=== PATIENT | female | born 2000 | race African-American/Black ===

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

== ENCOUNTER 2018-01-07 23:42 | Emergency (ER) | payer MEDICAID ==
[~2018-01-07] VITALS: Ht 160 cm; Wt 56.8 kg
[2018-01-07 23:49] VITALS: Ht 160 cm; Wt 56.8 kg
[2018-01-08] MEDS ORDERED: TORADOL10 MG PO (00:41)
[2018-01-08 01:35] VITALS: BP 130/75
== END 2018-01-08 01:32 | disposition home or self-care (01) ==
LOC: D.ER 23:42
DX: S53.401A Unspecified sprain of right elbow, initial encounter (principal); X58.XXXA Exposure to other specified factors, initial encounter; Y93.89 Activity, other specified; Y92.019 Unspecified place in single-family (private) house as the place of occurrence of the external cause

== ENCOUNTER 2018-02-25 20:33 | Emergency (ER) | payer MEDICAID ==
[~2018-02-25] VITALS: Ht 149.9 cm; Wt 81.8 kg
[~2018-02-25 20:33] MED LIST: TORADOL10 MG PO
[2018-02-25 20:38] VITALS: Ht 149.9 cm; Wt 81.8 kg
[2018-02-25] MEDS ORDERED: FERROUS SULFAT325 MG PO (20:39)
[2018-02-25] MEDS ORDERED: VENTOLIN HFA18 GM INH ×2 (20:40→21:57)
[2018-02-25] MEDS ORDERED: CLARITIN 10 MG10 MG PO (20:40)
[2018-02-25 21:02] LABS: BASOPHILS 0.2 % (0-2); EOSINOPHILS 0.9 % (0-7); HEMATOCRIT 25.9 % (36.0-48.0); HEMOGLOBIN 7.8 g/dL (12-16); MCH 20.9 pg (26.0-34.0); MCHC 30.1 g/dL (31.0-37.0); MCV 69.4 fL (80.0-100.0); MEAN PLATELET VOLUME 10.1 fL (7.4-10.4); MONOCYTES 6.9 % (2-11); PLATELET COUNT 244 10x3/uL (130-400); RBC 3.73 10x6/uL (4.00-5.40); RDW 16.7 % (11.5-14.5); WBC 4.5 10x3/uL (4.8-10.8)
[2018-02-25 21:13] LABS: ALKALINE PHOSPHATASE 76 U/L (46-116); ALT (SGPT) 26 U/L (10-68); BILIRUBIN - TOTAL 0.21 mg/dL (0.2-1.3); CALC OSMOLALITY 275 mosm/kg (275-300); CALCIUM 9.2 mg/dL (8.5-10.1); CARBON DIOXIDE 23.2 mmol/L (21.0-32.0); CHLORIDE - SERUM 103 mmol/L (98-107); CREATININE - SERUM 0.8 mg/dL (0.6-1.3); GLUCOSE 100 mg/dL (74-106); POTASSIUM - SERUM 3.9 mmol/L (3.5-5.1); PROTEIN - SERUM 8.3 g/dL (6.4-8.2); SODIUM 138 mmol/L (136-145); UREA NITROGEN 12 mg/dL (7-18); eGFR NON AFRICAN AMERICAN > 90 mL/min (90-120)
[2018-02-25 23:01] VITALS: BP 128/81
== END 2018-02-25 23:02 | disposition home or self-care (01) ==
LOC: D.ER 20:33
PROVIDERS: Family Medicine
DX: J45.901 Unspecified asthma with (acute) exacerbation (principal); D64.9 Anemia, unspecified; N92.0 Excessive and frequent menstruation with regular cycle

== ENCOUNTER 2019-07-01 15:18 | Emergency (ER) | payer MEDICAID ==
[~2019-07-01] VITALS: Ht 149.9 cm; Wt 80.0 kg
[~2019-07-01 15:18] MED LIST changes: +CLARITIN 10 MG10 MG PO; +FERROUS SULFAT325 MG PO; +VENTOLIN HFA18 GM INH
[2019-07-01 15:21] VITALS: Ht 149.9 cm; Wt 80.0 kg
[2019-07-01] MEDS ORDERED: PROAIR HFA8.5 G1 INH (16:54)
[2019-07-01] MEDS ORDERED: CLARITIN 10 MG10 MG PO (16:54)
[2019-07-01 17:11] VITALS: BP 126/78
== END 2019-07-01 17:11 | disposition home or self-care (01) ==
LOC: D.ER 15:18
DX: J45.901 Unspecified asthma with (acute) exacerbation (principal); J30.2 Other seasonal allergic rhinitis

== ENCOUNTER 2019-10-17 02:20 | Inpatient (IN) | payer MEDICAID ==
[~2019-10-17] VITALS: Ht 149.9 cm; Wt 81.6 kg
[2019-10-17] VITALS (7 sets, daily range): BP systolic 106–142; BP diastolic 55–86; BMI 36.4; BMI 36.3
[~2019-10-17 02:20] MED LIST changes: +PROAIR HFA8.5 G1 INH
[2019-10-17 02:46] LABS: BASOPHILS 0.1 % (0-2); EOSINOPHILS 0.1 % (0-7); HEMATOCRIT 20.9 % (36.0-48.0); IMMATURE GRANULOCYTES 0.7 % (0-5); LYMPHOCYTES 7.1 % (15-50); MCHC 27.8 g/dL (31.0-37.0); MCV 63.3 fL (80.0-100.0); MONOCYTES 7.8 % (2-11); NEUTROPHILS 84.2 % (40-80); RDW 20.1 % (11.5-14.5)
[2019-10-17 02:47] LABS: UDS - AMPHET NEGATIVE QUAL (NEGATIVE); UDS - BARB NEGATIVE QUAL (NEGATIVE); UDS - BENZO NEGATIVE QUAL (NEGATIVE); UDS - COCAINE NEGATIVE QUAL (NEGATIVE); UDS - OPIATE POSITIVE QUAL (NEGATIVE); UDS - PCP NEGATIVE QUAL (NEGATIVE); UDS - THC NEGATIVE QUAL (NEGATIVE)
[2019-10-17 02:49] LABS: BILIRUBIN NEGATIVE (NEGATIVE); GLUCOSE NEGATIVE (NEGATIVE); HCG URINE NEGATIVE (NEGATIVE); KETONE NEGATIVE (NEGATIVE); NITRITE NEGATIVE (NEGATIVE); UROBILINOGEN NORMAL (NORMAL)
[2019-10-17 02:51] LABS: RED CELLS - URINE 0-5 /hpf (0-5)
[2019-10-17 02:52] LABS: ANION GAP 15.4 mmol/L (8-16); BACTERIA MODERATE /hpf (NEGATIVE); CALCIUM 8.5 mg/dL (8.5-10.1); CREATININE - SERUM 1.6 mg/dL (0.6-1.3); EPITHELIAL CELLS 0-5 /hpf (0-5); POTASSIUM - SERUM 3.4 mmol/L (3.5-5.1)
[2019-10-17 02:57] LABS: ALBUMIN 3.4 g/dL (3.4-5.0); BILIRUBIN - TOTAL 0.73 mg/dL (0.2-1.3); PROTEIN - SERUM 7.7 g/dL (6.4-8.2)
[2019-10-17 03:00] LABS: HEMOGLOBIN 5.8 g/dL (12-16); MCH 17.6 pg (26.0-34.0); PLATELET COUNT 177 10x3/uL (130-400)
--- NOTE | 2019-10-17 03:53 | NUR ---
ROCEPHIN INFUSION COMPLETE
--- NOTE | 2019-10-17 05:02 | NUR ---
[facility] FOR [facility]LEMET[facility].
--- NOTE | 2019-10-17 07:28 | NUR ---
UNTIT ONE OF TWO UNITS OF PRBC STARTED T 0610 V/S 98.7, PULSE 95 , RESP 22 B/P100/55 TOLARATING WELL WITH NO S/S OF ADVERS REACTION AT THIS TIME.
--- NOTE | 2019-10-17 07:30 | NUR ---
SHIFT REPORT RECEIVED, PT SLEEPING, AROUSED EASILY TO VOICE, DENIES NEEDS, BED LOWEST POSITION, CALL LIGHT IN REACH, 1ST UNIT PRBCS STILL INFUSING, WILL CONTINUE TO MONITOR
--- NOTE | 2019-10-17 10:43 | NUR ---
CHECKED PT VITALS PRIOR TO SECOND UNIT, TEMP IS ELEVATED TO 100.3, SATS AT 94%, PULSE AT 115, PAGED JOVANI LEY ORDERED TYLENOL AND BENADRYL TO BE GIVEN PRIOR TO SECOND UNIT
[2019-10-17 17:51] LABS: HEMATOCRIT 30.1 % (36.0-48.0); HEMOGLOBIN 9.4 g/dL (12-16)
--- NOTE | 2019-10-17 19:00 | NUR ---
BEDSIDE REPORT RECEIVED AND CARE OF PT ASSUMED. PT SITTING UP IN BED WATCHING TV. IV TO LEFT FA PATENT WITH NS INFUSING AT 150 ML/HR. WILL MONITOR FOR NEEDS.
--- NOTE | 2019-10-17 19:36 | NUR ---
I have reviewed this patient and I concur with the Shift Assessment completed by the Licensed Practical Nurse today this shift.
--- NOTE | 2019-10-17 21:05 | NUR ---
HS MEDICATIONS GIVEN. WILL CONTINUE TO MONITOR FOR NEEDS.
--- NOTE | 2019-10-17 23:06 | NUR ---
GAVE MORPHINE IVP PER REQUEST FOR BACK AND ABDOMINAL PAIN. WILL MONITOR FOR EFFECTIVENESS.
--- NOTE | 2019-10-18 02:49 | NUR ---
GAVE PT ICE WATER, APPLE JUICE, AND X3 ICE PACKS PER REQUEST.
[2019-10-18 04:00] VITALS: BP 121/80
[2019-10-18 07:48] LABS: HEMATOCRIT 26.9 % (36.0-48.0); HEMOGLOBIN 8.1 g/dL (12-16); MCH 20.8 pg (26.0-34.0); MCHC 30.1 g/dL (31.0-37.0); MCV 69.2 fL (80.0-100.0); PLATELET COUNT 193 10x3/uL (130-400); RBC 3.89 10x6/uL (4.00-5.40); WBC 20.2 10x3/uL (4.8-10.8)
[2019-10-18 07:56] LABS: % SATURATION 40 % (15-55); IRON 116 ug/dl (35-150); TOTAL IRON BIND CAPACITY 289 ug/dl (260-445); UNSAT IRON BIND CAPACITY 173 ug/dl (150-375)
[2019-10-18 08:20] LABS: ALBUMIN 2.6 g/dL (3.4-5.0); ANION GAP 10.9 mmol/L (8-16); BILIRUBIN - TOTAL 0.83 mg/dL (0.2-1.3); CALCIUM 8.3 mg/dL (8.5-10.1); CARBON DIOXIDE 24.6 mmol/L (21.0-32.0); CREATININE - SERUM 1.1 mg/dL (0.6-1.3); POTASSIUM - SERUM 3.5 mmol/L (3.5-5.1); PROTEIN - SERUM 6.6 g/dL (6.4-8.2)
[2019-10-18 09:01] VITALS: BP 121/73
[2019-10-18 10:57] LABS: % SATURATION 2 % (15-55); IRON 8 ug/dl (35-150); TOTAL IRON BIND CAPACITY 368 ug/dl (260-445); UNSAT IRON BIND CAPACITY 360 ug/dl (150-375)
[2019-10-18 11:10] LABS: FERRITIN 60 ng/mL (3-244); LDH 280 U/L (81-234)
[2019-10-18 11:59] VITALS: BP 122/73
[2019-10-18 12:11] LABS: ANISOCYTOSIS OCC; LYMPHOCYTES 9 % (15-50); MONOCYTES 12 % (2-11); NEUTROPHILS 79 % (40-80); PLATELET ESTIMATE NORMAL; POIKILOCYTOSIS OCC; POLYCHROMASIA OCC
[2019-10-18 12:12] LABS: CRENATED CELLS OCC
[2019-10-18 16:41] VITALS: BP 124/89
--- NOTE | 2019-10-18 18:10 | NUR ---
STOOL COLLECTED AND TAKEN TO LAB.
[2019-10-18 18:24] VITALS: Ht 149.9 cm; Wt 81.6 kg
[2019-10-18 20:00] VITALS: BP 134/92
[2019-10-19] VITALS: BP 141/92
--- NOTE | 2019-10-19 03:35 | NUR ---
PT RESTING IN BED. EYES CLOSED. NO SIGNS OF DISTRESS. BREATHING EVEN AND UNLABORED. IV SITE LT FA DRESSING CLEAN DRY AND INTACT IV FLUIDS GOING. RT AC IV DRESSING CLEAN DRY AND INTACT. NO SIGNS OF INFECTION OR INFULTRATION. SKIN CLEAN DRY AND INTACT. WILL CONTINUE PLAN OF CARE. CALL LIGHT IN REACH. BED LOWERED AND LOCKED.
[2019-10-19 04:00] VITALS: BP 156/98
[2019-10-19 04:49] LABS: BASOPHILS 0.2 % (0-2); EOSINOPHILS 0.2 % (0-7); HEMATOCRIT 25.3 % (36.0-48.0); IMMATURE GRANULOCYTES 2.2 % (0-5); LYMPHOCYTES 8.5 % (15-50); MCH 20.5 pg (26.0-34.0); MCHC 29.6 g/dL (31.0-37.0); MCV 69.1 fL (80.0-100.0); MONOCYTES 11.8 % (2-11); NEUTROPHILS 77.1 % (40-80); PLATELET COUNT 221 10x3/uL (130-400); RBC 3.66 10x6/uL (4.00-5.40); RDW 24.7 % (11.5-14.5); WBC 16.1 10x3/uL (4.8-10.8)
--- NOTE | 2019-10-19 05:11 | NUR ---
I have reviewed this patient and I concur with the Shift Assessment completed by the Licensed Practical Nurse today this shift.
[2019-10-19 05:24] LABS: ALBUMIN 2.8 g/dL (3.4-5.0); ANION GAP 13.6 mmol/L (8-16); BILIRUBIN - TOTAL 0.45 mg/dL (0.2-1.3); CALCIUM 8.3 mg/dL (8.5-10.1); CARBON DIOXIDE 21.3 mmol/L (21.0-32.0); POTASSIUM - SERUM 3.9 mmol/L (3.5-5.1); PROTEIN - SERUM 6.4 g/dL (6.4-8.2)
[2019-10-19 05:44] LABS: HEMOGLOBIN 7.5 g/dL (12-16)
--- NOTE | 2019-10-19 07:00 | NUR ---
A&O RESTING IN BED WITH EYES OPEN. NO C/O PAIN. NO S/S OF ACUTE DISTRESS NOTED. IV TO LEFT FOREARM, NS INFUSING @ 150 ML/HR. SITE PATENT WITHOUT REDNESS OR SWELLING AND IV TO RIGHT AC, SL. SITES PATENT WITHOUT REDNESS OR SWELLING. H&H 7.5/25.3 THIS AM. DENIES ANY NEEDS AT THIS TIME. CALL LIGHT IN REACH. WILL CONTINUE TO MONITOR.
[2019-10-19 07:14] LABS: HAPTOGLOBIN 267 mg/dL (33-278)
[2019-10-19 08:38] VITALS: BP 148/99
[2019-10-19 12:41] VITALS: BP 143/99
[2019-10-19 17:00] VITALS: BP 140/96
--- NOTE | 2019-10-19 18:26 | NUR ---
RESTING IN BED WITH EYES OPEN. NO C/O PAIN. NO S/S OF ACUTE DISTRESS NOTED. IV TO LEFT FOREARM INFILTRATED, DISCONTINUED CATHETER TIP INTACT. IV TO RIGHT AC STILL PATENT, SWITCHED FLUIDS TO PATENT IV. DENIES ANY NEEDS AT THIS TIME. CALL LIGHT IN REACH.
--- NOTE | 2019-10-19 19:49 | NUR ---
I have reviewed this patient and I concur with the Shift Assessment completed by the Licensed Practical Nurse today this shift.
[2019-10-19 20:00] VITALS: BP 134/91
--- NOTE | 2019-10-19 23:30 | NUR ---
NEW IV SITED RT FA 20G. ATTEMPTS X3. PT TOLERATED WELL. SWAB CAPS IN PLACE. CONTINUED IV FLUIDS. WILL CONTINUE PLAN OF CARE.
[2019-10-20] VITALS (8 sets, daily range): BP systolic 128–164; BP diastolic 91–99
--- NOTE | 2019-10-20 00:57 | NUR ---
PT RESTING IN BED. EYES CLOSED. NO SIGNS OF DISTRESS. BREATHING EVEN AND UNLABORED. IV SITE RT FA 20G. DRESSING CLEAN DRY AND INTACT. NO SIGNS OF INFECTION OR INFULTRATION. FLUIDS GOING. SKIN CLEAN DRY AND INTACT. NO LOWER LEG SWELLING PRESENT. WILL CONTINUE PLAN OF CARE. CALL LIGHT IN REACH. BED LOWERED AND LOCKED. BED RAILS UPX1.
--- NOTE | 2019-10-20 04:40 | NUR ---
I have reviewed this patient and I concur with the Shift Assessment completed by the Licensed Practical Nurse today this shift.
[2019-10-20 06:12] LABS: BASOPHILS 0.2 % (0-2); EOSINOPHILS 0.9 % (0-7); HEMATOCRIT 24.4 % (36.0-48.0); IMMATURE GRANULOCYTES 6.4 % (0-5); LYMPHOCYTES 13.8 % (15-50); MCH 20.6 pg (26.0-34.0); MCHC 29.9 g/dL (31.0-37.0); MCV 68.7 fL (80.0-100.0); MONOCYTES 10.7 % (2-11); PLATELET COUNT 224 10x3/uL (130-400); RBC 3.55 10x6/uL (4.00-5.40); RDW 25.5 % (11.5-14.5); WBC 12.4 10x3/uL (4.8-10.8)
[2019-10-20 06:18] LABS: HEMOGLOBIN 7.3 g/dL (12-16)
[2019-10-20 06:19] LABS: ALBUMIN 2.8 g/dL (3.4-5.0); ALKALINE PHOSPHATASE 63 U/L (30-120); ALT (SGPT) 21 U/L (10-68); BILIRUBIN - TOTAL 0.35 mg/dL (0.2-1.3); CALC OSMOLALITY 270 mosm/kg (275-300); CARBON DIOXIDE 21.6 mmol/L (21.0-32.0); CHLORIDE - SERUM 105 mmol/L (98-107); CREATININE - SERUM 0.9 mg/dL (0.6-1.3); GLUCOSE 80 mg/dL (74-106); POTASSIUM - SERUM 3.8 mmol/L (3.5-5.1); PROTEIN - SERUM 6.2 g/dL (6.4-8.2); SODIUM 137 mmol/L (136-145); eGFR NON AFRICAN AMERICAN 84 mL/min (90-120)
[2019-10-20 06:20] LABS: UREA NITROGEN 7 mg/dL (7-18)
--- NOTE | 2019-10-20 06:50 | NUR ---
A&O RESTING IN BED WITH EYES OPEN. NO C/O PAIN. NO S/S OF ACUTE DISTRESS NOTED. ON 2L O2, NC. SCDS PRESENT. IV TO RIGHT FOREARM, NS INFUSING @ 125ML/HR. SITE PATENT WITHOUT REDNESS OR SWELLING. HGB 7.3 THIS AM, 7.5 YESTERDAY. DENIES ANY NEEDS AT THIS TIME. CALL LIGHT IN REACH. WILL CONTINUE TO MONITOR.
--- NOTE | 2019-10-20 07:38 | NUR ---
UP TO BATHROOM. PATIENT IS WITHOUT NEEDS.
[2019-10-20] MEDS ORDERED: FLORAJEN3 CAPS460 MG PO (08:50)
[2019-10-20] MEDS ORDERED: TESSALON PERLE100 MG PO (08:50)
[2019-10-20] MEDS ORDERED: MUCINEX600 MG PO (08:50)
[2019-10-20] MEDS ORDERED: PROTONIX40 MG PO (08:50)
[2019-10-20] MEDS ORDERED: HCTZ25 MG PO (08:50)
[2019-10-20] MEDS ORDERED: LISINOPRIL10 MG PO (08:50)
[2019-10-20] MEDS ORDERED: FERROUS SULFAT325 MG PO (08:51)
[2019-10-20] MEDS ORDERED: LEVAQUIN750 MG PO (08:51)
--- NOTE | 2019-10-20 13:20 | NUR ---
CALLED LAB TO CHECK ON 2 UNITS OF PRBC TO TRANSFUSE. LAB STATED THEY WOULD CALL ME BACK. SPOKE WITH LAUREL IN THE LAB AND HE STATED THAT THE PATIENT NEEDED TO BE TYPE/SCREENED AGAIN.
--- NOTE | 2019-10-20 16:10 | NUR ---
CALLED LAB TO SEE WHEN THEY WERE GOING TO COME DRAW BLOOD FROM PATIENT FOR THE TYPE AND SCREEN SO THIS NURSE COULD TRANSFUSE BLOOD. THEY STATED THEY WOULD BE UP SOON THEY COULD.
--- NOTE | 2019-10-20 17:58 | NUR ---
ALERT AND ORIENTED, PACING AROUND ROOM TALKING ON CELL PHONE. NO C/O PAIN. NO S/S OF ACUTE DISTRESS NOTED. CALL LIGHT IN REACH. WILL CONTINUE TO MONITOR.
[2019-10-20 18:08] LABS: ADAMTS13 ACTIVITY 56.2 % (>66.8)
--- NOTE | 2019-10-20 18:37 | MORECARE ---
CASE MANAGEMENT DISCHARGE SUMMARY PATIENT: ARNOL LUNDBERG UNIT: [id number] ADM DATE: 10/17/19 AGE: 19 : 98 SEX: F ROOM/BED: D.2231 AUTHOR: JORGE SMITH PHYSICIAN: REFERRING PHYSICIAN: SARITHA CAGE MD DATE OF SERVICE: 10/20/19 Discharge Plan Patient Name: ARNOL LUNDBERG Facility: [facility]:[place] : 2000 Planned Disposition: Home Anticipated Discharge Date: Discharge Date: Expected LOS: Initial Reviewer: [email or web address] Initial Review Date: 10/17/2019 Generated: 10/20/19 7:37 pm DCPIA - Discharge Planning Initial Assessment Updated by [email or web address]: Anya West on 10/20/19 6:34 pm * Is the patient Alert and Oriented? Yes * PCP NONE * Pharmacy [facility] * Preadmission Environment Home with Family * ADLs Independent * Additional services required to return to the preadmission environment? No * Can the patient safely return to the preadmission environment? Yes * Has this patient been hospitalized within the prior 30 days at any hospital? No Patient Name: ARNOL LUNDBERG Page [id number] at 1837 All edits/amendments must be made on the electronic document DICTATION DATE: 10/20/191836 PORTABLE GRINDING MACHINE OPERATOR: FILI 10/20/191836 RPT#: [id number] DC DATE: STATUS: ADM IN [facility] [address] [place] [address] END OF REPORT
--- NOTE | 2019-10-20 18:45 | MORECARE ---
CASE MANAGEMENT DISCHARGE SUMMARY PATIENT: ARNOL LUNDBERG UNIT: [id number] ADM DATE: 10/17/19 AGE: 19 : 98 SEX: F ROOM/BED: D.2231 AUTHOR: JORGE SMITH PHYSICIAN: REFERRING PHYSICIAN: SARITHA CAGE MD DATE OF SERVICE: 10/20/19 Discharge Plan Patient Name: ARNOL LUNDBERG Facility: [facility]:[place] : 2000 Planned Disposition: Home Anticipated Discharge Date: Discharge Date: Expected LOS: Initial Reviewer: [email or web address] Initial Review Date: 10/17/2019 Generated: 10/20/19 7:44 pm Comments DCP- Discharge Planning Updated by [email or web address]: Anya West on 10/20/19 5:[address] Patient Name: ARNOL LUNDBERG Admission Status: ER Accout number: [id number] Admission Date: 10-17-2019 : 2000 Admission Diagnosis:URINARY TRACT INFECTION, SITE NOT SPECIFIED Attending: SARITHA CAGE Current LOS: 3 Anticipated DC Date: Planned Disposition: Home Primary Insurance: [place] [employer] [place] Discharge Planning Comments: ARNOL LUNDBERG provided verbal consent to discuss current and ongoing needs REGARDING DC PLANNING. SHE PLANS TO DC TO HOME TOMORROW. DENIES NEED FOR EQUIPMENT, HH, REHAB OR SNF. STATES FAMILY IS AT BEDSIDE AND WILL TRANSPORT HER HOME WHEN DISCHARGED. Dry Cleaning Teacher: Anya West DCPIA - Discharge Planning Initial Assessment Updated by [email or web address]: Anyanoreen West on 10/20/19 6:34 pm * Is the patient Alert and Oriented? Yes * PCP NONE * Pharmacy [facility] * Preadmission Environment Home with Family * ADLs Independent * Additional services required to return to the preadmission environment? No * Can the patient safely return to the preadmission environment? Yes * Has this patient been hospitalized within the prior 30 days at any hospital? No Last DP export: 10/20/19 5:37 pm Patient Name: ARNOL LUNDBERG Page [id number] at 9321 All edits/amendments must be made on the electronic document DICTATION DATE: 10/20/19 8836 WOODWIND INSTRUMENTS INSPECTOR: DM 10/20/191843 RPT#: [id number] DC DATE: STATUS: ADM IN [facility] [address] [place] [address] END OF REPORT
--- NOTE | 2019-10-20 19:29 | NUR ---
CALLED HOUSE SUPERVISIOR ABOUT PATIENT NOT GETTING BLOOD DRAWN FOR TYPE AND SCREEN TO INFUSE 2 UNITS OF PRBC. NOTIFIED SHYANN THAT NO ONE FROM LAB HAS DRAWN BLOOD FROM THE PATIENT SO THAT THIS NURSE COULD START TRANSFUSION.
--- NOTE | 2019-10-20 20:44 | NUR ---
SCRIPT COORDINATOR JUST NOW CAME AND DRAWLED PT BLOOD FOR TYPE AND CROSSMATCH. WILL FALLOW UP.
--- NOTE | 2019-10-20 23:40 | NUR ---
BLOOD TRANSFUSION STARTED. PT VITALS STABLE. PREMEDS GIVEN. WILL CONTINUE TO CLOSELY MONITOR.
[2019-10-21 02:35] VITALS: BP 141/99
[2019-10-21 03:35] VITALS: BP 141/99
--- NOTE | 2019-10-21 03:46 | NUR ---
2ND UNIT OF BLOOD STARTED. VITAL SIGNS STABLE. WILL CONTINUE TO MONITOR CLOSELY.
[2019-10-21 03:50] VITALS: BP 149/98
--- NOTE | 2019-10-21 04:36 | NUR ---
I have reviewed this patient and I concur with the Shift Assessment completed by the Licensed Practical Nurse today this shift.
[2019-10-21 07:15] VITALS: BP 149/98
--- NOTE | 2019-10-21 07:48 | NUR ---
ALERT AND ORIENTED. LUNGS CLEAR BILATERALLY. HEART SOUNDS S1 AND S2 HEARD IN ALL [place]. BOWEL SOUNDS ACTIVE X 4. IV TO RFA PATENT WITHOUT REDNESS. DENIES NEEDS. BED LOW. CALL KHAN AND PERSONAL ITEMS IN REACH. WILL CONTINUE TO MONITOR.
[2019-10-21 08:00] VITALS: BP 152/102
[2019-10-21 09:47] LABS: BASOPHILS 0.6 % (0-2); EOSINOPHILS 1.1 % (0-7); IMMATURE GRANULOCYTES 12.5 % (0-5); LYMPHOCYTES 13.2 % (15-50); MCH 23.4 pg (26.0-34.0); MCHC 32.1 g/dL (31.0-37.0); MONOCYTES 11.7 % (2-11); NEUTROPHILS 60.9 % (40-80); PLATELET COUNT 240 10x3/uL (130-400); RDW 27.1 % (11.5-14.5); WBC 10.3 10x3/uL (4.8-10.8)
[2019-10-21 09:53] LABS: HEMATOCRIT 31.8 % (36.0-48.0); HEMOGLOBIN 10.2 g/dL (12-16); MCV 73.1 fL (80.0-100.0); RBC 4.35 10x6/uL (4.00-5.40)
[2019-10-21 09:57] LABS: ALBUMIN 2.8 g/dL (3.4-5.0); ALKALINE PHOSPHATASE 60 U/L (30-120); ALT (SGPT) 24 U/L (10-68); BILIRUBIN - TOTAL 0.36 mg/dL (0.2-1.3); CALC OSMOLALITY 272 mosm/kg (275-300); CALCIUM 8.6 mg/dL (8.5-10.1); CARBON DIOXIDE 22.5 mmol/L (21.0-32.0); CHLORIDE - SERUM 107 mmol/L (98-107); CREATININE - SERUM 0.9 mg/dL (0.6-1.3); GLUCOSE 87 mg/dL (74-106); POTASSIUM - SERUM 3.7 mmol/L (3.5-5.1); PROTEIN - SERUM 7.1 g/dL (6.4-8.2); SODIUM 138 mmol/L (136-145); UREA NITROGEN 7 mg/dL (7-18); eGFR NON AFRICAN AMERICAN 84 mL/min (90-120)
--- NOTE | 2019-10-21 10:45 | NUR ---
DISCHARGE EDUCATION PROVIDED BOTH WRITTEN AND VERBAL. VERBALIZED UNDERSTANDING. DENEIS FURTHER QUESTIONS. IV REMOVED FROM RFA WITH TIP INTACT. PATIENT WAITING RIDE.
--- NOTE | 2019-10-21 11:29 | NUR ---
PATIENT DC HOME WITH ALL BELONGINGS.
--- NOTE | 2019-10-22 09:32 | MORECARE ---
CASE MANAGEMENT DISCHARGE SUMMARY PATIENT: ARNOL LUNDBERG UNIT: [id number] ADM DATE: 10/17/19 AGE: 19 : 98 SEX: F ROOM/BED: D.2231 AUTHOR: JORGE SMITH PHYSICIAN: REFERRING PHYSICIAN: SARITHA CAGE MD DATE OF SERVICE: 10/22/19 Discharge Plan Patient Name: ARNOL LUNDBERG Facility: [facility]:[place] : 2000 Planned Disposition: Home Anticipated Discharge Date: Discharge Date: 10/21/2019 Expected LOS: Initial Reviewer: [email or web address] Initial Review Date: 10/17/2019 Generated: 10/22/19 10:31 am Comments DCP- Discharge Planning Updated by [email or web address]: Anya Jenna on 10/20/19 5:[address] Patient Name: ARNOL LUNDBERG Admission Status: ER Accout number: [id number] Admission Date: 10-17-2019 : 2000 Admission Diagnosis:URINARY TRACT INFECTION, SITE NOT SPECIFIED Attending: SARITHA CAGE Current LOS: 3 Anticipated DC Date: Planned Disposition: Home [place] Insurance: [place] [employer] [place] Discharge Planning Comments: ARNOL LUNDBERG provided verbal consent to discuss current and ongoing needs REGARDING DC PLANNING. SHE PLANS TO DC TO HOME TOMORROW. DENIES NEED FOR EQUIPMENT, HH, REHAB OR SNF. STATES FAMILY IS AT BEDSIDE AND WILL TRANSPORT HER HOME WHEN DISCHARGED. Submarine Advisory Team Watch Officer: Anya West DCPIA - Discharge Planning Initial Assessment Updated by [email or web address]: Anya Jenna on 10/20/19 6:34 pm * Is the patient Alert and Oriented? Yes * PCP NONE * Pharmacy [facility] * Preadmission Environment Home with Family * ADLs Independent * Additional services required to return to the preadmission environment? No * Can the patient safely return to the preadmission environment? Yes * Has this patient been hospitalized within the prior 30 days at any hospital? No Last DP export: 10/20/19 5:45 pm Patient Name: ARNOL LUNDBERG Page [phone] at 0932 All edits/amendments must be made on the electronic document DICTATION DATE: 10/22/19930 PROCUREMENT TECHNICIAN: DM 10/22/19930 RPT#: [id number] DC DATE:10/21/19 STATUS: DIS IN [facility] [address] [place] [address] END OF REPORT
== END 2019-10-21 11:30 | disposition home or self-care (01) | DRG 690 ==
LOC: D.ER 02:20 → D.MS 03:09
PROVIDERS: Family Medicine; Family Medicine Adult Medicine; Internal Medicine Hematology & Oncology; ADMIT Family Medicine; ATTEND Family Medicine
DX: N12 Tubulo-interstitial nephritis, not specified as acute or chronic (principal); E87.1 Hypo-osmolality and hyponatremia; J98.11 Atelectasis; N39.0 Urinary tract infection, site not specified; E87.6 Hypokalemia; D50.0 Iron deficiency anemia secondary to blood loss (chronic); E86.0 Dehydration; R70.1 Abnormal plasma viscosity